=== PATIENT | female | born 1955 | race Caucasian/White ===

== ENCOUNTER 2019-12-22 20:01 | Emergency (ER) | payer BC, SELFPAY ==
--- NOTE | ~2019-12-22 | XR_ITS ---
XR wrist RT min 3V DATE: 12/22/2019 20:33 INDICATION: Fall. Right wrist hand and wrist injury, laceration, pain, bruising TECHNIQUE: 4 views of right wrist COMPARISON: None FINDINGS: No recent fracture or dislocation, periosteal reaction or bone destruction, chondrocalcinos is or erosive change is detected. IMPRESSION: No recent fracture or dislocation Reviewed, dictated and finalized at location A.
--- NOTE | ~2019-12-22 | XR_ITS ---
XR hand RT min 3V DATE: 12/22/2019 20:33 INDICATION: Injury, pain, bruising, laceration TECHNIQUE: 3 views COMPARISON: None FINDINGS: There is soft tissue swelling of the dorsum of the hand. No recent fracture or dislocation, periosteal reaction or bone destruction is detected. No erosive change. IMPRESSION: Soft tissue swelling; no recent fracture or dislocation Reviewed, dictated and finalized at location A.
[2019-12-22 20:05] VITALS: BP 146/91; PULSE 83; RESP 20; TEMP 36.5; O2SAT 96
[2019-12-22 20:13] VITALS: BP 146/91; PULSE 88; RESP 18; O2SAT 96
--- NOTE | 2019-12-22 20:52 | ED.UPPEXIN ---
HPI - Extremity Injury (Upper) General Chief Complaint: Extremity Injury, Upper Stated Complaint: fall with hand injury Time Seen by Provider: 12/22/19 20:05 Source: patient Mode of arrival: ambulatory Limitations: no limitations History of Present Illness HPI narrative: Patient is a 64-year-old female who presents after sustaining a ground-level fall that occurred at 5 PM patient notes that she had had some drinks with her sister and went into the bathroom and had a ground-level fall patient denies any head injury syncope loss of consciousness. Family was present helped the patient up and 4 hours later presents to emergency department due to laceration to the dorsal surface of the right hand. Patient notes she sustained an abrasion to the right elbow and right knee which she describes as minimal in nature. Patient notes she has been able to ambulate and bear weight without difficulty patient notes moderate aching pain to the dorsal surface of the right hand. . Patient notes her tetanus to be up-to-date. Patient denies other complaints at this time patient presents with family. Patient is adamant that she did not hit her head or sustain syncope Related Data Allergies Allergy/AdvReac Type Severity Reaction Status Date / Time Penicillins Allergy Unknown unknown Verified 12/22/19 20:11 Review of Systems Review of Systems: All systems reviewed & are unremarkable except as noted in HPI and below PMFSH Past Medical History Medical History Acute gastritis without hemorrhage Alcohol dependence, episodic drinking behavior Bulimia Depression DM w/o complication type II Essential hypertension Hypothyroidism Mixed hyperlipidemia Osteopenia Vitamin D deficiency Social History Social History Smoking status: Never smoker Second hand tobacco smoke exposure: No Alcohol intake: current Gender identity (if verbalized by the patient): Female Sexual Orientation (if Verbalized by the Patient): Straight or Heterosexual Exam Narrative: Exam Narrative: GENERAL: Well-appearing, well-nourished, and in no acute distress. HEAD: Normocephalic, atraumatic. EYES: PERRLA and EOMI. ENT: Nares clear, no rhinorrhea or epistaxis. Mucous membranes moist. CHEST: Clear to auscultation. No respiratory distress. No wheezes rales or rhonchi HEART: Regular rate and rhythm. No murmur heard. Normal peripheral pulses. EXTREMITIES: Normal range of motion. No edema. Superficial bruising minimal tenderness of the right elbow with normal range of motion and strength. Superficial bruising to the anterior right knee minimal tenderness. Flap laceration to the dorsal surface of the right hand with underlying contusion. SKIN: Warm, dry, no rash. NEURO: No focal deficits. Alert and oriented x3. Neurovascularly intact. Capillary refill less than 2 seconds PSYCH: Normal mood and affect. Course Course Emergency Course: Patient in the room at this time in no distress resting comfortably had closure of wound in the emergency department will be discharged home with plan follow-up with primary care who she sees in the next 2 days patient felt appropriate for outpatient reevaluation able to ambulate without difficulty Vital Signs Vital signs: Vital Signs Temperature 97.7 F 12/22/19 20:05 Pulse Rate 83 12/22/19 20:05 Respiratory Rate 20 12/22/19 20:05 Blood Pressure 146/91 H 12/22/19 20:05 Pulse Oximetry 96 12/22/19 20:05 Temperature 97.7 F 12/22/19 20:05 Pulse Rate 88 12/22/19 20:13 Respiratory Rate 18 12/22/19 20:13 Blood Pressure 146/91 H 12/22/19 20:13 Pulse Oximetry 96 12/22/19 20:13 Procedures Laceration Laceration 1: Date: 12/22/19 Time: 20:58 Site: upper extremity Side (If applicable): right Size (cm): 5 Description: flap and irregular Depth: simple, singl
[2019-12-22] MEDS: LIDOCAINE HCL 1% LOCAL INJ 20 ML VIAL (21:00)
[2019-12-22 21:22] VITALS: BP 132/68; PULSE 68; RESP 18; O2SAT 96
== END 2019-12-22 21:24 | disposition home or self-care (01) ==
PROVIDERS: Emergency Provider Emergency Medicine; PCP Family Medicine
DX: S61.411A Laceration without foreign body of right hand, initial encounter (principal); S50.11XA Contusion of right forearm, initial encounter; S80.01XA Contusion of right knee, initial encounter; F32.9 Major depressive disorder, single episode, unspecified; I10 Essential (primary) hypertension; E03.9 Hypothyroidism, unspecified; E78.5 Hyperlipidemia, unspecified; W01.0XXA Fall on same level from slipping, tripping and stumbling without subsequent striking against object, initial encounter
CPT/HCPCS: 12002; 73110; 73130; 99283

== ENCOUNTER 2020-08-12 04:26 | Emergency (ER) | payer BC, SELFPAY ==
--- NOTE | ~2020-08-12 | CT_ITS ---
EXAMINATION: CT brain wo con DATE: 08/12/2020 05:09 INDICATION: Head injury. TECHNIQUE: Computed tomography (CT) of the head was performed without intravenous contrast. The mA wa s adjusted according to patient size. Iterative reconstruction technique was employed. The dose-lengt h product was 605.33 mGy-cm. COMPARISON: None FINDINGS: There is no intracranial hemorrhage, acute infarction, or abnormal intracranial mass lesion . There are scattered areas of low attenuation in the cerebral white matter, which is within normal l imits for the patient's age. The ventricles are normal in size. The paranasal sinuses are clear. The orbits are normal. The mastoid air cells are normal. There is right frontal scalp soft tissue swellin g. IMPRESSION: 1. Normal aging brain. Reviewed, dictated and finalized at location A. IMPRESSION: 1. Normal aging brain.
--- NOTE | ~2020-08-12 | XR_ITS ---
EXAMINATION: XR hand LT min 3V DATE: 08/12/2020 05:05 INDICATION: Left hand pain. Fall. TECHNIQUE: 3 views of left hand were obtained. COMPARISON: None. FINDINGS: Bone alignment is normal. No fracture. There is mild osteoarthritis of triscaphe joint, fir st carpometacarpal joint, first interphalangeal joint, and second distal interphalangeal joint. IMPRESSION: 1. Mild polyarticular osteoarthritis. Reviewed, dictated and finalized at location A.
[2020-08-12 04:23] VITALS: BP 167/71; PULSE 88; RESP 23; TEMP 36.9; O2SAT 97
--- NOTE | 2020-08-12 04:49 | ED.HEATRA ---
HPI - Head Injury General Chief complaint: Head Injury Stated complaint: glf - 3-4 ft drop, head lac, no blood thinners Time Seen by Provider: 08/12/20 04:38 Source: patient Mode of arrival: EMS Limitations: no limitations History of Present Illness HPI Narrative: Patient is a six 5-year-old female complaining of head injury, laceration on her forehead after she fell out of bed. Patient states that I must of been dreaming fell out of bed and hit her forehead on the nightstand. Patient states that her pain is currently mild and does not want anything for it. Patient also complaining of mild left hand pain after she also hit it on the nightstand. Patient states that she was able to get up and ambulate after the fall. She denies LOC. She denies any neck, chest, back, abdomen, pelvis, hip or any extremity pain/injury. Related Data Allergies Allergy/AdvReac Type Severity Reaction Status Date / Time Penicillins Allergy Unknown unknown Verified 01/02/20 09:05 Review of Systems Review of Systems: All systems reviewed & are unremarkable except as noted in HPI and below Constitutional: Constitutional: Denies body ache(s), Denies chills, Denies excessive sweating, Denies fatigue, Denies fever(s), Denies headache(s), Denies lethargy, Denies malaise, Denies weakness and Denies weight loss Eyes: Eyes: Denies blurry vision, Denies change in vision and Denies loss of vision ENT: Denies dizziness, Denies ear discharge, Denies headache(s), Denies lip swelling, Denies epistaxis, Denies nasal congestion, Denies neck pain, Denies throat swelling and Denies tongue swelling Cardiovascular: Cardiovascular: Denies chest pain, Denies chest pain at rest, Denies chest pain with activity, Denies diaphoresis, Denies rapid heart rate, Denies edema, Denies irregular heart rhythm, Denies lightheadedness, Denies palpitations, Denies dyspnea and Denies dyspnea on exertion Respiratory: Respiratory: Denies chest congestion, Denies cough, Denies hemoptysis, Denies dyspnea and Denies dyspnea on exertion Gastrointestinal: Gastrointestinal: Denies abdominal pain, Denies melena, Denies hematochezia, Denies diarrhea, Denies nausea, Denies vomiting and Denies hematemesis Musculoskeletal: Musculoskeletal: Denies abnormal gait, Denies deformity, Denies joint swelling, Denies limited range of motion, Denies neck pain and Denies numbness Neurologic: Denies Abnormal speech present, Denies abnormal gait, Denies confusion, Denies dizziness, Denies headache(s), Denies focal weakness, Denies loss of vision, Denies numbness, Denies Other visual disturbances, Denies Sensory deficit (Neuro) and Denies weakness Psychiatric: Psychiatric: Denies confusion, Denies depression, Denies auditory hallucinations, Denies homicidal ideation and Denies suicidal ideation Endocrine: Endocrine: Denies cold intolerance, Denies excessive sweating, Denies fatigue, Denies heat intolerance and Denies palpitations Hematologic/Lymphatic: Hematologic/Lymphatic: Denies easy bleeding and Denies easy bruising Allergic/Immunologic: Allergic/Immunologic: Denies lip swelling, Denies throat swelling and Denies tongue swelling PMFSH Past Medical History Medical History (Updated 08/12/20 @ 04:55 by Chon Rodriguez MD) Acute gastritis without hemorrhage Alcohol dependence, episodic drinking behavior Bulimia Depression DM w/o complication type II Essential hypertension Hypothyroidism Mixed hyperlipidemia Osteopenia Vitamin D deficiency Social History Social History Smoking status: Never smoker Second hand tobacco smoke exposure: No Alcohol intake: current Gender identity (if verbalized by the patient): Female Exam Const: General: cooperative, healthy appearing, comfortable, no acute distress, well developed, alert and awake; No confusion Orientation/consciousness: oriented to person, oriented to place, oriented to time, patient oriented x
[2020-08-12 06:17] VITALS: BP 148/88; PULSE 86; RESP 18; TEMP 37.1; O2SAT 99
== END 2020-08-12 06:19 | disposition home or self-care (01) ==
PROVIDERS: Emergency Provider Emergency Medicine; PCP Family Medicine
DX: S01.01XA Laceration without foreign body of scalp, initial encounter (principal); S60.222A Contusion of left hand, initial encounter; S60.512A Abrasion of left hand, initial encounter; E11.9 Type 2 diabetes mellitus without complications; I10 Essential (primary) hypertension; E03.9 Hypothyroidism, unspecified; E78.2 Mixed hyperlipidemia; M85.80 Other specified disorders of bone density and structure, unspecified site; E55.9 Vitamin D deficiency, unspecified; M18.9 Osteoarthritis of first carpometacarpal joint, unspecified; M19.042 Primary osteoarthritis, left hand; M19.032 Primary osteoarthritis, left wrist; W06.XXXA Fall from bed, initial encounter
CPT/HCPCS: 12002; 70450; 73130; 99284

== ENCOUNTER 2020-12-31 09:13 | Outpatient (CLI) | payer BC, SELFPAY ==
--- NOTE | ~2020-12-31 | MM_ITS ---
EXAMINATION: MM screening [facility] BI w lindsay HISTORY: Screening TECHNIQUE: Craniocaudal and mediolateral oblique 3-D tomosynthesis images were obtained and synthetic 2-D images were generated. CAD analysis was submitted and interpreted. COMPARISON: Comparison to multiple prior studies sequentially, with oldest reviewed study dated 06/2012. BREAST PARENCHYMAL COMPOSITION: There are scattered areas of fibroglandular density. FINDINGS: There is no evidence of suspicious mass, calcification, or architectural distortion to sugg est malignancy in either breast. There has been no suspicious interval change. IMPRESSION: 1. No mammographic evidence of malignancy. 2. Recommend routine screening mammography in one year. BI-RADS Category 1: Negative Reviewed, dictated and finalized at location A.
--- NOTE | ~2020-12-31 | DEXA_ITS ---
Bone Density Report Name: Kristen Knight Age: 65 Sex: Female Ethnicity: White Date of : 1955 Indication: osteopenia; menopausal Referring Provider: MICHAEL, YVONNE Orozco Study: Bone densitometry was performed. Exam Date: December 31, 2020 Accession number: [id number] Bone Density: Region BMD T-score Z-score Classification AP Spine (L1-L4) 0.883 -1.5 0.4 Osteopenia Femoral Neck (Left) 0.477 -3.3 -1.7 Osteoporosis Total Hip (Left) 0.790 -1.2 0.1 Osteopenia Total Hip Bilateral Avg 0.802 -1.2 0.2 Osteopenia Femoral Neck (Right) 0.660 -1.7 0.0 Osteopenia Total Hip (Right) 0.812 -1.1 0.3 Osteopenia World Health Organization criteria for BMD impression classify patients as: Normal (T-score at or above -1.0), Osteopenia (T-score between -1.0 and -2.5), or Osteoporosis (T-score at or below -2.5). 10-year Fracture Risk: FRAX not reported because: Some T-score for Spine Total or Hip Total or Femoral Neck at or below -2.5 Previous Exams: Region Exam Age BMD T-score BMD Change BMD Change Date g/cm2 vs Baseline vs Previous AP Spine(L1-L4) 12/31/2020 65 0.883 -1.5 -0.041(-4.4%)# -0.041(-4.4%)# 05/15/2011 55 0.923 -1.1 Total Hip(Left) 12/31/2020 65 0.790 -1.2 -0.042(-5.0%)# -0.042(-5.0%)# 05/15/2011 55 0.832 -0.9 Total Hip(Right) 12/31/2020 65 0.812 -1.1 0.000(0.0%)# 0.000(0.0%)# 05/15/2011 55 0.812 -1.1 *Denotes significance at 95% confidence level, LSC for AP Spine = 0.022 g/cm2, LSC for Total Hip = 0.027 g/cm2 Clinical Information Provided by Patient: Has used the following medications: Vitamin D Patient maximum height was 62 Menopause Age: 53 No regular weight bearing exercise Drinks caffeinated beverages Onset of menses at age 14 Number of children 2 Impression: The patient has osteoporosis, based on the Left Femoral Neck T-score. No significant bone loss was observed. Discussion: INCREASED RISK OF FRACTURE. BONE DENSITY IS UNDESIRABLY LOW AT ONE OR MORE SKELETAL SITES, CONSISTENT WITH POSTMENOPAUSAL OSTEOPOROSIS. This patient's lowest T-score meets the World Health Organization's (WHO) criteria for osteoporosis at one or more sites (T-score -2.5 or below). In untreated patients, the risk of osteoporotic fracture increases approximately two-fold for each 1.0 SD decrease in T-score. Low bone density is not the only risk factor for fracture; also consider factors such as patient's age, frailty or poor health, risk of falling, ri
== END 2020-12-31 09:14 | disposition home or self-care (01) ==
LOC: ANHIMG 09:14
PROVIDERS: PCP Physician Assistant; Visit Provider Physician Assistant
DX: Z12.31 Encounter for screening mammogram for malignant neoplasm of breast (principal); Z78.0 Asymptomatic menopausal state; M85.89 Other specified disorders of bone density and structure, multiple sites; M81.0 Age-related osteoporosis without current pathological fracture
CPT/HCPCS: 77063; 77067; 77080

== ENCOUNTER 2022-03-24 08:05 | Outpatient (CLI) | payer BC, SELFPAY ==
--- NOTE | ~2022-03-24 | MM_ITS ---
EXAMINATION: MM screening [facility] BI w lindsay HISTORY: Screening mammogram TECHNIQUE: Craniocaudal and mediolateral oblique 3-D tomosynthesis images were obtained and synthetic 2-D images were generated. CAD analysis was submitted and interpreted. COMPARISON: 12/31/2020, 11/04/2018, 06/21/2017 BREAST PARENCHYMAL COMPOSITION: There are scattered areas of fibroglandular density. FINDINGS: Scattered benign-appearing calcifications are present. No suspicious mass, calcification, o r architectural distortion are identified in either breast to suggest malignancy. There has been no s uspicious interval change. IMPRESSION: 1. No mammographic evidence of malignancy. 2. Recommend routine screening mammography in one year. BI-RADS Category 2: Benign finding(s). Reviewed, dictated and finalized at location A. '[employer]
== END 2022-03-24 08:06 | disposition home or self-care (01) ==
LOC: ANHIMG 08:08
PROVIDERS: PCP Physician Assistant; Visit Provider Physician Assistant
DX: Z12.31 Encounter for screening mammogram for malignant neoplasm of breast (principal)
CPT/HCPCS: 77063; 77067

== ENCOUNTER 2023-02-02 16:19 | Emergency (ER) | payer OTHER, SELFPAY ==
--- NOTE | ~2023-02-02 | XR_ITS ---
XR chest 2V DATE: 02/02/2023 16:42 INDICATION: Dull chest pain TECHNIQUE: PA and lateral views COMPARISON: None FINDINGS: Normal heart size. No hilar or mediastinal enlargement. No pulmonary infiltrate or consol idation, pulmonary vascular congestion or pleural effusion or pneumothorax. IMPRESSION: No active cardiopulmonary disease Reviewed, dictated and finalized at location B.
[2023-02-02 16:21] VITALS: PULSE 62; RESP 20; TEMP 36.2; O2SAT 65
--- NOTE | 2023-02-02 16:23 | ECG_ITS ---
Measurements Intervals [place] Rate: 62 P: 24 HI: 151 QRS: 2 QRSD: 90 T: 4 QT: 478 QTc: 486 Interpretive Statements SINUS RHYTHM MODERATE VOLTAGE CRITERIA FOR LVH, CONSIDER NORMAL VARIANT [MEETS CRITERIA IN ONE OF: R(aVL), S(V1), R(V5), R(V5/V6)+S(V1)] POOR R-WAVE PROGRESSION BORDERLINE ECG NO PREVIOUS ECG AVAILABLE FOR COMPARISON Electronically Signed On 02-03-2023 8:49:19 CDT by Vitaliy Zimmerman M.D.
[2023-02-02 16:42] LABS: Basophils Absolute Auto 0.1 K/mm3 (0.0-0.1); Basophils Percent Auto 0.8 % (0.2-1.2); Eosinophils Absolute Auto 0.4 K/mm3 (0-0.3); Eosinophils Percent Auto 4.2 % (0-4.4); Hematocrit 48.1 % (37.0-47.0); Hemoglobin 15.4 g/dL (12.0-15.0); Immature Granulocyte Absolute 0.04 K/mm3 (0.00-0.031); Immature Granulocyte Percent A 0.4 % (0-0.5); Lymphocytes Absolute Auto 2.07 K/mm3 (0.9-3.2); Lymphocytes Percent Auto 22.8 % (18.3-44.2); Mean Corpuscular Hemoglobin 29.5 pg (26-34); Mean Corpuscular Volume 92.1 fl (80-100); Mean Platelet Volume 9.8 fl (7.4-10.4); Monocytes Absolute Auto 0.7 K/mm3 (0.1-0.6); Monocytes Percent Auto 7.2 % (2.6-8.5); Neutrophils Absolute Auto 5.9 K/mm3 (1.3-6.7); Neutrophils Percent Auto 64.6 % (45.5-73.1); Platelet Count Result 361 k/mm3 (150-375); Red Blood Count 5.22 M/mm3 (4.2-5.4); White Blood Count 9.1 K/mm3 (4.5-10.0)
[2023-02-02 16:47] VITALS: BP 190/100
[2023-02-02 16:52] LABS: Prothrombin Time 13.1 Seconds (11.1-14.7)
[2023-02-02 16:53] LABS: Partial Thromboplastin Time 27.9 SECONDS (22.3-36.8)
[2023-02-02 16:54] LABS: Alanine Aminotransferase 28 U/L (6-35); Albumin Level 4.4 g/dL (3.5-5.1); Alkaline Phosphatase 114 U/L (38-126); Anion Gap 8 mmol/L (8-16); Aspartate Amino Transferase 36 U/L (14-36); Bilirubin,Total 0.6 mg/dL (0.2-1.3); Blood Urea Nitrogen 12 mg/dL (7-17); Calcium 8.9 mg/dL (8.4-10.2); Carbon Dioxide 27 mmol/L (22-30); Chloride 98 mmol/L (98-107); Estimated CRCL calculation 62 ml/min; Estimated Glomerular Filt Rate > 60; Glucose 111 mg/dL (65-110); Lipase 68 U/L (23-300); Potassium 4.1 mmol/L (3.4-5.0); Sodium 133 mmol/L (137-145)
[2023-02-02 17:06] LABS: Troponin I < 0.012 ng/mL (0.000-0.034)
[2023-02-02 20:14] VITALS: BP 169/96; PULSE 65; RESP 22; O2SAT 98
[2023-02-02 20:59] LABS: Troponin I < 0.012 ng/mL (0.000-0.034)
--- NOTE | 2023-02-02 21:39 | ED.GENADULT ---
HPI - General Adult General Chief complaint: Recheck/Abnormal Lab/Rx Stated complaint: high blood pressure Time Seen by Provider: 02/02/23 21:27 History of Present Illness HPI narrative: Patient 67-year-old female who presents the emergency department with chief complaint of hypertension. Patient reports that she felt flushed and hot and reports that her blood pressure was 244/133. The patient states this was taken with a wrist cuff and reports that she takes metoprolol for high blood pressure. The patient states that since has been in the emergency department she feels fine and reports that she is not having any chest pain denies shortness of breath denies headache denies focal neurological deficit. Related Data Home Medications Medication Instructions Recorded Confirmed cholecalciferol (vitamin D3) 25 25 mcg PO DAILY 10/11/20 10/11/20 mcg (1,000 unit) tablet mecobalamin (vitamin B12) 1,000 1,000 mcg sublingual DAILY 10/11/20 10/11/20 mcg disintegrating tablet,sublingual [id number]-[id number]-devtq ac 400 tablet PO 10/11/20 10/11/20 mcg-calcium carb 500 mg-vit K1 20 mcg tablet (Women's 50 Plus Multivitamin) riboflavin (vitamin B2) 100 mg 100 mg PO DAILY 10/11/20 10/11/20 tablet Allergies Allergy/AdvReac Type Severity Reaction Status Date / Time Penicillins Allergy Unknown unknown Verified 02/02/23 20:17 Review of Systems Review of Systems: A 10 system review of systems was completed on the patient and is negative except for what is stated in the HPI. Nursing and ancillary documentation was reviewed. [facility] Past Medical History Medical History (Updated 02/02/23 @ 21:51 by Bruce Powell MD) Acute gastritis without hemorrhage Alcohol dependence, episodic drinking behavior Bulimia Depression DM w/o complication type II Essential hypertension Hypothyroidism Mixed hyperlipidemia Osteopenia Vitamin D deficiency Social History Social History Smoking status: Never smoker Second hand tobacco smoke exposure: No Alcohol intake: current Gender identity (if verbalized by the patient): Female Sexual Orientation (if Verbalized by the Patient): Straight or Heterosexual Exam Narrative: GENERAL: Well-appearing, well-nourished, and in no acute distress. HEAD: Normocephalic, atraumatic. EYES: PERRLA and EOMI. ENT: Nares clear, no rhinorrhea or epistaxis. Mucous membranes moist. NECK: Supple. CHEST: Clear to auscultation. No respiratory distress. HEART: Regular rate and rhythm. No murmur heard. Normal peripheral pulses. ABDOMEN: Soft, nontender, nondistended, normal active bowel sounds. EXTREMITIES: Normal range of motion. No edema. SKIN: Warm, dry, no rash. NEURO: No focal deficits. Alert and oriented x3. PSYCH: Normal mood and affect. Course Vital Signs Vital signs: Vital Signs Temperature 36.2 C L 02/02/23 16:21 Pulse Rate 62 02/02/23 16:21 Respiratory Rate 20 02/02/23 16:21 Pulse Oximetry 65 L 02/02/23 16:21 Temperature 36.2 C L 02/02/23 16:21 Pulse Rate 65 02/02/23 20:14 Respiratory Rate 22 H 02/02/23 20:14 Blood Pressure 169/96 H 02/02/23 20:14 Pulse Oximetry 98 02/02/23 20:14 Medical Decision Making [facility] Narrative Medical decision making narrative: Differential diagnosis includes hypertensive crisis, essential hypertension, electrolyte abnormality, ACS Chest x-ray showed no focal infiltrate EKG showed sinus rhythm rate of [address] elevation or ST depression Laboratory studies were obtained which showed a normal CBC normal CMP troponin was negative at 0-hour and 3-hour Patient reports she is feeling much better at this time Currently the patient blood pressure has come down without any intervention. The patient will be instructed to do twice daily blood pressure checks and keep a log and follow-up with her primary care provider Vital Signs Vital Sig
[2023-02-02 22:38] VITALS: BP 160/84; PULSE 56; RESP 16; O2SAT 96
== END 2023-02-02 22:36 | disposition home or self-care (01) ==
PROVIDERS: Emergency Medicine; Emergency Provider Emergency Medicine; PCP Family Medicine
DX: I10 Essential (primary) hypertension (principal); E78.2 Mixed hyperlipidemia; E11.9 Type 2 diabetes mellitus without complications; E55.9 Vitamin D deficiency, unspecified; F32.A Depression, unspecified
CPT/HCPCS: 36415; 71046; 80053; 83690; 84484; 85025; 85610; 85730; 93005; 99284

== ENCOUNTER 2023-07-05 15:13 | Outpatient (CLI) | payer OTHER, SELFPAY ==
--- NOTE | ~2023-07-05 | MM_ITS ---
EXAMINATION: MM screening [facility] BI w lindsay HISTORY: Screening TECHNIQUE: Craniocaudal and mediolateral oblique 3-D tomosynthesis images were obtained and synthetic 2-D images were generated. CAD analysis was submitted and interpreted. COMPARISON: Comparison to multiple prior studies sequentially, with oldest reviewed study dated 04/2014. BREAST PARENCHYMAL COMPOSITION: Not dense: There are scattered areas of fibroglandular density. FINDINGS: There is no evidence of suspicious mass, calcification, or architectural distortion to sugg est malignancy in either breast. There has been no suspicious interval change. IMPRESSION: 1. No mammographic evidence of malignancy. 2. Recommend routine screening mammography in one year. BI-RADS Category 1: Negative Reviewed, dictated and finalized at location A.
== END 2023-07-05 15:14 | disposition home or self-care (01) ==
PROVIDERS: PCP Family Medicine; Visit Provider Family Medicine
DX: Z12.31 Encounter for screening mammogram for malignant neoplasm of breast (principal)
CPT/HCPCS: 77063; 77067

== ENCOUNTER 2024-10-08 09:37 | Outpatient (CLI) | payer OTHER, SELFPAY ==
--- NOTE | ~2024-10-08 | MM_ITS ---
EXAMINATION: MM screening [facility] BI w lindsay HISTORY: Screening mammogram TECHNIQUE: Craniocaudal and mediolateral oblique 3-D tomosynthesis images were obtained and synthetic 2-D images were generated. CAD analysis was submitted and interpreted. COMPARISON: 07/05/2023, 03/24/2022, 12/31/2020 BREAST PARENCHYMAL COMPOSITION:Not Dense. There are scattered areas of fibroglandular density. FINDINGS: No suspicious mass, calcification, or architectural distortion are identified in either glen ast to suggest malignancy. There has been no suspicious interval change. IMPRESSION: No mammographic evidence of malignancy. Recommend routine screening mammography in one year. BI-RADS Category 1: Negative Reviewed, dictated and finalized at location .
== END 2024-10-08 09:38 | disposition home or self-care (01) ==
PROVIDERS: PCP Family Medicine; Visit Provider Family Medicine
DX: Z12.31 Encounter for screening mammogram for malignant neoplasm of breast (principal)
CPT/HCPCS: 77063; 77067